=== PATIENT | female | born 1940 | race Caucasian/White ===

== ENCOUNTER 2024-01-25 14:34 | Outpatient (REF) | payer MEDICARE, SELFPAY ==
--- NOTE | ~2024-01-25 | US_ITS ---
EXAMINATION: US EXTRACRANIAL CAROTID DUPLEX, BILATERAL CLINICAL INFORMATION: stroke COMPARISON: None available. TECHNIQUE: Real-time ultrasound and Doppler techniques (integrating B-mode 2-D vascular images, Doppler spectral analysis and color-flow Doppler imaging) were utilized to interrogate the extracranial carotid arteries, the vertebral arteries and proximal subclavian arteries bilaterally. The degree of stenosis is determined by criteria similar to NASCET. FINDINGS: Right Side: 1. There is mild atherosclerotic plaque seen in the bifurcation/proximal ICA region. 2. The common carotid artery PSV proximally is 92 cm/s and distally 65 cm/s. 3. The proximal internal carotid artery velocities are 53 cm/s systolic and 8 cm/s diastolic. 4. The proximal external carotid artery PSV is 79 cm/s. 5. The vertebral artery shows antegrade flow. 6. The subclavian artery waveforms are normal. Left Side: 1. There is mild atherosclerotic plaque seen in the bifurcation/proximal ICA region. 2. The common carotid artery PSV proximally is 58 cm/s and distally 53 cm/s. 3. The proximal internal carotid artery velocities are 47 cm/s systolic and 9 cm/s diastolic. 4. The proximal external carotid artery PSV is 108 cm/s. 5. The vertebral artery shows antegrade flow. 6. The subclavian artery waveforms are normal. US/US carotid duplex BI IMPRESSION: 1. RIGHT: Minimal, non-hemodynamically significant stenosis of the proximal right internal carotid artery corresponding to a 0-49% stenosis by velocity criteria. 2. LEFT: Minimal, non-hemodynamically significant stenosis of the proximal left internal carotid artery corresponding to a 0-49% stenosis by velocity criteria. Electronically signed by: Tyshawn Singh MD 02/03/2024 11:04 AM EDT
--- NOTE | ~2024-01-25 | CT_ITS ---
EXAMINATION: CT HEAD WITHOUT CONTRAST CLINICAL INFORMATION: Stroke. COMPARISON: None available. TECHNIQUE: Contiguous axial imaging was performed from the skull base to vertex without intravenous administration of contrast. This CT examination was performed using dose optimization techniques as appropriate, variously including the following: *Automated exposure control. *Adjustment of mA and/or kV according to patient size (this includes techniques or standardized protocols for targeted exams where dose is matched to indication/reason for exam; i.e. extremities or head). *Use of iterative reconstruction technique. DLP: 707 mGy-cm FINDINGS: Chronic appearing lacunar infarcts of the bilateral castro radiata, right caudate head, bilateral lentiform nuclei, and bilateral thalami. No additional loss of maldonado-white matter differentiation. No evidence of acute intracranial hemorrhage. Confluent hypoattenuation in the periventricular and deep white matter. Proportional prominence of the ventricles and sulcal spaces without evidence of obstructive hydrocephalus. No abnormal mass effect or midline shift. No extra-axial fluid collections. No acute soft tissue or osseous abnormalities. Mild mucosal thickening of the paranasal sinuses. Mild rightward nasal septal deviation. The mastoid air cells and middle ear cavities are clear. Moderate to advanced degenerative arthropathy of the temporomandibular joints. CT/CT head/brain wo IV con IMPRESSION: 1. No evidence of acute intracranial hemorrhage or edematous territorial infarction. 2. Moderate to extensive underlying microangiopathy and generalized cerebral volume loss. Chronic appearing lacunar infarcts of the deep nuclei. Electronically signed by: Enrique De La Rosa DO 03/21/2024 04:20 AM [facility]
== END 2024-01-25 14:35 | disposition home or self-care (01) ==
LOC: HO.US 14:34
PROVIDERS: Visit Provider Psychiatry & Neurology Neurology
DX: I63.9 Cerebral infarction, unspecified (principal); I65.23 Occlusion and stenosis of bilateral carotid arteries
CPT/HCPCS: 70450; 93880

== ENCOUNTER 2025-02-26 13:12 | Outpatient (AMB) | payer MEDICARE, OTHER, SELFPAY ==
--- NOTE | 2025-02-26 13:14 | A.OFFVIS_ITS ---
Intake Visit Reasons: 6m stroke Allergies No Known Allergies Allergy (Verified 02/26/25 13:21) Medication List - Last Reconciled 02/26/25 by Hazel De Luna CNP alprazolam 0.5 mg (1/2 x 1 mg) PO QID 30 days amlodipine 10 mg PO DAILY aspirin-dipyridamole 25-200 mg 1 cap PO BID atenolol 50 mg PO DAILY atorvastatin 40 mg PO DAILY cholecalciferol (vitamin D3) 50 mcg PO DAILY hydrocodone-acetaminophen 10-325 mg 0.5 tabs PO BID PRN 30 days lisinopril 5 mg PO DAILY omeprazole 20 mg PO DAILY tamsulosin 0.4 mg PO DAILY HPI Comments Details: 84-year-old woman with history of epilepsy as a child, but outgrew it at age 12 and has been off phenobarbital since then, 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 Since then, she has been taking Aggrenox twice a day and has had daily headaches. She does not have any problems with her upper extremities. No cognitive problems or speech impediment. Her headaches were being treated by Dr. Muñoz with hydrocodone 10/325 2 tablets 2-4x/day and alprazolam 1mg 3x/day. Hydrocodone dose was reduced to 10/325 1/2 tablet twice a day (15 tabs/month) and alprazolam dose was reduced to 1mg 1/2 tablet 4x/day (60 tabs/month). She was doing okay. Ongoing left lower extremity weakness, using left knee brace for additional support and asking if script for new brace could be given. Walking with cane, sometimes using walker. No recent falls. Some occasional back pain. No new stroke-like symptoms. Headaches are on and off. She noticed headaches happened if she read a lot. She was wearing glasses when reading. She was under some more stress this past month as her son-in-law passed in 07/2024 and her daughter was having a difficult time. Medications were helping. She was doing okay. Ongoing left lower extremity weakness, using left knee brace for additional support. Walking with cane most of the time, but will use walker when outside of the house, no falls. Some occasional back pain. No new stroke- like symptoms. Headaches were not bad. In the past, she noticed headaches happened more if she read a lot. She was under some stress. Her daughter was diagnosed with breast cancer a few days after her passed. She reported non-productive cough x4 days and was taking Mucinex. No CP/SOB. No fevers, chills, nausea, vomiting, or dizziness. Appetite was okay. [facility] Medical History (Updated 02/26/25 @ 13:33 by Hazel De Luna CNP) Juvenile epilepsy Hyperlipidemia Hypertension Tension headache Stroke Review of Systems Const Denies chills, Denies daytime sleepiness, Denies difficulty sleeping, Denies fatigue, Denies fever(s), Denies frequent falls, Reports headache(s), Denies increased appetite, Denies poor appetite, Denies snoring, Denies weakness, Denies weight gain and Denies weight loss Eyes Denies loss of vision ENT Denies vertigo, Denies dizziness, Reports headache(s) and Denies neck pain Card Denies chest pain at rest, Denies chest pain with activity, Denies syncope, Denies leg edema, Denies palpitations, Denies dyspnea and Denies dyspnea on exertion Resp Denies cough, Denies dyspnea, Denies dyspnea on exertion and Denies snoring GI Denies abdominal pain, Denies constipation, Denies heartburn, Denies diarrhea and Denies nausea Denies urinary frequency, Denies urinary incontinence and Denies urinary urgency Musc Reports abnormal gait (balance difficulty), Denies back pain, Denies myalgias, Denies arthralgias, Denies neck pain, Denies numbness and Denies tingling Neuro Reports abnormal gait (balance difficulty), Denies vertigo, Denies dizziness, Denies syncope, Denies frequent falls, Reports headache(s), Denies lack of coordination, Denies loss of vision, Denies memory loss, Denies numbness, Denies Other visual disturbances, Denies restless legs, Denies seizure-like activity, Denies tingling, Denies paresthesias, Denies tremor(s) and Denies weakness Psych Denies anxiety, Denies depression, Denies auditory hallucinations, Denies memory loss and Denies visual hallucinations Endo Denies fatigue and Denies palpitations Physical Exam Const Other: General Appearance:? normal, in no acute distress. Heart:? S1, S2 normal, no murmurs. Lungs:? clear anteriorly and posteriorly, dim at bases. Dry cough. Musculoskeletal:? normal. Extremities:? no edema. Psych:? alert, oriented, cognitive function intact, cooperative with exam. Neuro Other: Abnormal Neurological Findings:?LLE 3/5 proximally and 4/5 quads. Left sided mild hyperreflexia. Left knee brace. Walks with cane. Mental Status: alert and oriented X 3. Normal attention, orientation, memory, and affect. Cranial Nerves: Pupils are equal, round, and reactive to light. External ocular muscles are intact. Visual gunn are full, no ptosis. Face is symmetrical, no facial weakness or droop. Facial sensations are normal. Tongue protrudes in midline. Palate elevates symmetrically. Shoulder shrugging is normal Motor Examination: As above. Sensory Exam: Normal light touch, temperature, pinprick, vibration, and joint- position sensations. Rhomberg sign is absent. Coordination: No ataxia. No titubation. Gait Exam: With cane. Cerebellar Signs: [id number] is okay. Extrapyramidal System: No tremor, rigidity with normal facial expressions. No bradykinesia. No bradyphrenia. Normal arm swing and posture. No propulsion or retropulsion. Speech: Normal. Results Reviewed Results Reviewed: CT head 06/2019: Moderate white matter disease Assessment & Plan Assessment & Plan (1) History of stroke with residual deficit: Code(s): I69.30 - Unspecified sequelae of cerebral infarction Category: Medical Plan: Continue current medications. (2) Tension headache: Comment: possible headache is related to Aggrenox use, chronic daily narcotic and benzodiazepine use that has been prescribed to her for many years Code(s): G44.209 - Tension-type headache, unspecified, not intractable Category: Medical Plan: Possible headache is related to Aggrenox use, chronic daily narcotic and benzodiazepine use that has been prescribed to her for many years Continue hydrocodone-acetaminophen 10-325mg 1/2 tablet twice a day #15 for 30 days. Continue alprazolam 1mg 1/2 tablet four times a day #60 for 30 days. (3) Cough: Code(s): R05.9 - Cough, unspecified Category: Medical Qualifiers: Cough type: acute Qualified Code(s): R05.1 - Acute cough Plan: Chest XR ordered. Advised to stay hydrated, follow up with PCP if symptoms worsened, ER precautions reviewed. Plan . Coding Level of Care Code Est Pt Level 4 (84105) Diagnoses History of stroke with residual deficit I69.30 Tension headache G44.209 Acute cough R05.1 Cough type: acute
--- OUTSIDE RECORDS SUMMARY | 2025-02-27 05:37 | XMS_ITS | Encounter Summary ---
Author Organization [facility] Address [address] [place] [address] Care Team Providers Care Transport Aide Name Role Phone Karan Deluca MD Primary Care Provider [phone] Encounter Details Date Type Department Care Team (Late st Contact Info) Description 02/21/2025 Telephone Internal Medicine - [place] [address] [facility] [address] [place] [address] Karan Deluca MD [address] [place] [phone] Social History Tobacco Use Types Packs/Day Years Used Date Smoking Tobacco: Former Cigarettes 0 Q uit: 04/11/2000 Smokeless Tobacco: Never Alcohol Use Standard Drinks/Week Comments No 0 (1 standard drink = 0.6 oz pur e alcohol) Comments Unknown Sex and Gender Information Value Date Recorded Sex Assigned at Not on file Legal Sex Female 6:06 AM EST Gender Identity Not on file Sexual Orientation Not on file documented as of this encounter Progress Notes * Nesha Lea MA - 02/22/2025 9:12 AM EST Patient called looking for information on Shakir for evaluation - Gave her information and let patient know once she is evaluated agency will contact office with orders to sign for her services * Fartun Kumar - 02/21/2025 3:03 PM EST Patient states left message for nesha re: [facility] care Please contact her documented in this encounter Plan of Treatment Not on file documented as of this encounter Visit Diagnoses Not on filedocumented in this encounter Additional Health Concerns Assessment Noted Time PHQ-9 Depression Total Score: 0 02/12/20 25 11:43 AM EST A fall risk assessment has been complete d for the patient 02/11/2025 12:07 PM EST documented as of this encounter Care Teams Transport Aide Relationship Specialty Start Date End Date Karan Deluca MD [address] [place] [phone] PCP - General 01/27/24 documented as of this encounter
--- OUTSIDE RECORDS SUMMARY | 2025-02-27 05:38 | XMS_ITS | Encounter Summary ---
Author Organization [facility] Address [id number] [place] [phone] Care Team Providers Care Putty Patcher Name Role Phone Karan Deluca MD Primary Care Provider [phone] Reason for Visit * Reason Onset Date Comments Med Refill 03/01/2024 Encounter Details Date Type Department Care Team ([facility] st Contact Info) Description 03/01/2024 Telephone Internal Medicine - [place] [address] [facility] [address] [place] [address] Karan Deluca MD [address] [place] [phone] Social History Tobacco Use Types Packs/Day Years [...] on file documented as of this encounter Plan of Treatment Not on file documented as of this encounter Visit Diagnoses Not on filedocumented in this encounter Care Teams Putty Patcher Relationship Specialty Start Date End Date Karan Deluca MD [address] [facility] [address] [place] [address] PCP - General 01/27/24 documented as of this encounter
--- OUTSIDE RECORDS SUMMARY | 2025-02-27 05:38 | XMS_ITS | Clinical Summary ---
Author Organization 175 [facility] Address [address] [place] [address] Phone Care Team Providers Care Bird Tender Name Role Phone Karan Deluca MD Primary Care Provider [phone] Allergies Active Allergy Reactions Criticality Noted Date Comments Sulfamethoxazole-Trimethoprim 2016 Bactrim Medications baclofen (LIORESAL) 10 mg tablet TAKE 1/2 TABLET BY MOUTH EVERY MORNING AND BEFORE BEDTIME 12/22/19 24 Active nystatin-triam cinolone (MYCOLOG II) cream Apply 1 g topically 2 Times Daily. 07/03/19 23 Active ondansetron (ZOFRAN) 4 mg tablet Take 1-2 Tablets by mouth every 8 hours as needed for Nausea. 06/15/19 23 Active tamsulosin (FLOMAX) 0.4 mg 24 hr capsule Take 1 capsule (0.4 mg total) by mouth at bedtime. Active lisinopriL (PRINIVIL,ZEST RIL) 5 mg tablet Take 1 tablet (5 mg total) by mouth 1 (one) time each day. 90 tablet 2 05/02/19 25 Active amLODIPine (NORVASC) 10 mg tablet TAKE 1 TABLET BY MOUTH DAILY 90 tablet 1 11/01/19 25 Active omeprazole (PriLOSEC) [address] capsule Take 1 capsule (20 mg total) by mouth 1 (one) time each day. 90 capsule 1 01/02/20 25 Active aspirin-dipyri damole (AGGRENOX) 25-200 mg per 12 hr capsule TAKE 1 CAPSULE BY MOUTH TWICE DAILY 180 capsule 01/29/20 25 Active atenoloL (TENORMIN) 50 mg tablet TAKE 1 TABLET(50 MG) BY MOUTH 1 TIME EACH DAY 90 tablet 1 01/30/20 25 Active cholecalcifero l (Vitamin D3) 50 mcg (2,000 unit) tablet Take 1 tablet (2,000 Units total) by mouth 1 (one) time each day. 90 tablet 3 02/12/20 25 026 Active atorvastatin (LIPITOR) 40 mg tablet Take 1 tablet (40 mg total) by mouth 1 (one) time each day. 90 tablet 2 02/20/20 25 Active atorvastatin (LIPITOR) 40 mg tablet Take 1 tablet (40 mg total) by mouth 1 (one) time each day. 90 tablet 2 05/31/19 25 025 Discontinued(Re order) atenoloL (TENORMIN) 50 mg tablet Take 1 tablet (50 mg total) by mouth 1 (one) time each day. 90 tablet 1 11/02/19 25 025 Discontinued Active Problems Problem Noted Date Diagnosed Date History of cardioembolic cerebrovascular acciden t (CVA) 03/21/2024 Anxiety 12/03/2015 GERD (gastroesophageal reflux disease) 6 Overview (02/16/2024): Had [address] Mancilla. No Reddy's historic. Previously every 2 years at [facility] [place]. Hemiparesis affecting left s jefferson as late effect of stroke (CMS/HCC V24, CMS/HCC V28) 06/24/2015 Overview (02/16/2024): CVA 04/06/2009 with left lower extremity weakness, saw Dr Muñoz Hypercholesterolemia 06/24/2015 Hypertension 06/24/2015 Lumbar degenerative disc disease 06/24/2015 Urinary outflow obstruction 06/24/2015 Encounters Date Type Department Care Team Description 02/21/2025 Telephone Internal Medicine - [place] [address] [facility] [address] [place] [phone] Karan Deluca MD 02/14/2025 Telephone Internal Medicine - [place] [address] [facility] [address] [place] [phone] Karan Deluca MD 02/11/2025 12:30 PM EST Lab Draw Station - [facility] [address] [place] [phone] Adult general medical examination; Medicare annual wellness visit, subsequent; Other fatigue; Other abnormal glucose; Hypercholesterolemia; Vitamin D deficiency 02/11/2025 11:30 AM EST Office Visit Internal Medicine [address] [phone] Karan Deluca MD Medicare annual wellness visit, subsequent (Primary Dx); Primary hypertension; Hypercholesterolemia; Gastroesophageal reflux disease, unspecified whether esophagitis present; Anxiety; Degeneration of intervertebral disc of lumbar region with discogenic back pain; Routine general medical examination at a health care facility; History of cardioembolic cerebrovascular accident (CVA); Hemiparesis affecting left side as late effect of stroke (CMS/HCC V24, CMS/HCC V28); Vitamin D deficiency; Other fatigue; Other abnormal glucose; Skin growth 02/11/2025 Results Follow-Up Internal [address] [phone] Karan Deluca MD 01/22/2025 Telephone Internal Medicine [address] [phone] Karan Deluca MD from Last 3 Months Immunizations Immunization Administration Dates Next Due Influenza trivalent, 0.5mL ( Fluad) 65yo and older 12/18/2023,01/24/2018,03/16/2017 Influenza trivalent, 0.5mL, preservative free (Fluarix; FluLaval; Fluzone) ages 6mo and older (Afluria) 3 years and older 12/14/2019,03/02/2013,04/26/2012 [employer] SARS-CoV-2 COVID-19, mRNA, LNP-S, preservative free 12/18/2023,06/12/2020,05/22/2020 Pneumococcal conjugate 13 va lent (Prevnar 13, PCV13) 2mo and older 08/31/2017 Pneumococcal polysaccharide 23 valent (Pneumovax 23) 2yo and older 11/16/2018 Tdap Tetanus diptheria acell ular pertussis (Boostrix; Adacel) 7yo and older 08/31/2017 Surgical History Surgery Date Site/Laterality Comments UPPER GASTROINTESTINAL ENDOSCOPY PROCEDURE: RI UPPER GI ENDOSCOPY PERFORMED COLONOSCOPY PROCEDURE: HISTORICAL COLONOSCOPY; COMMENT: 1984 Medical History Medical History Date Comments GERD (gastroesophageal reflux disease) DX:GERD (gastroesophageal reflux disease) Hypertension DX:Hypertension Stroke ([facility] V24, [facility] V28) DX:Stroke ([facility]); COMMENT: 2009 Bladder neck obstruction DX:Blad efrain neck obstruction; COMMENT: sees Dr. Bonds; does not need to self cath Degenerative disc disease, lumbar DX:Degenerative disc disease, lumbar Hemiparesis affecting left s jefferson as late effect of stroke ([facility] V24, [facility] V28) 06/24/2015 DX:Hemiparesis affecting lef t side as late effect of stroke ([facility]); COMMENT: CVA 04/06/2009 with left lower extremity weakness, saw Dr Muñoz Family History Medical History Relation Name Comments Coronary artery disease Brother 1 Alcohol abuse Brother 2 No Known Problems Daughter Lung cancer Father likely r/t work Other: heart condition Mother ?rheu matic fever Arthritis Sister No Known Problems Son Relation Name Status Comments Brother 1 Brother 2 Daughter Alive Father Mother Sister Alive Son Alive Social History Tobacco Use Types Packs/Day Years [...] on file Sexual Orientation Not on file Obstetrics History Last Filed Vital Signs Vital Sign Reading Time Taken Comments Blood Pressure 118/88 02/11/2025 11:28 AM EST Pulse 59 02/11/2025 11:28 AM EST Temperature 36.2 C (97.1 F) 02/11/2025 11:28 AM EST Respiratory Rate - - Oxygen Saturation 96% 02/11/2025 11:28 AM EST Inhaled Oxygen Concentration - - Weight 54.9 kg (121 lb) 02/11/2025 11:28 AM EST Height 160 cm (5' 3 ) 01/11/2024 2:33 PM EDT Body Mass Index 21.43 01/11/2024 2:33 PM EDT Plan of Treatment Health Maintenance Due Date Last Done Comments Zoster Vaccines (1 of 2) 1990 RSV Immunization Adult Patients (1 - 1-dose 75+ series) 11/30/2015 Osteoporosis Screening (Bone Density Screening) 03/20/2022 Social Influencers of Health Screening 03/20/2022 COVID-19 Vaccine ( season) 2024 12/18/2023, 06/12/2020, 05/22/2020 Influenza Vaccine (#1) 2024 , 12/14/2019, 01/24/2018, Additional history exists Falls Risk Assessment 02/11/2026 02/11/2025, 025 Hypertension/CHF/CAD Annual BMP Blood Test 02/11/2026 02/11/2025, 08/10/2023, 08/10/2023 Medicare Annual Wellness Visit 02/11/2026 02/11/2025 DTaP,Tdap,and Td Vaccines (2 - Td or Tdap) 09/01/2027 08/31/2017 Cholesterol Screening (Lipid Panel) 02/11/2030 02/11/2025, 08/11/2022 Pneumococcal Vaccine: 50+ Years Completed 11/16/2018, 08/31/2017 Depression Screening Completed 02/11/2025, 01/13/20 24 HIB Vaccines Aged Out No longer eligi ble based on patient's age to complete this topic HPV Vaccines Aged Out No longer eligi ble based on patient's age to complete this topic Hepatitis A Vaccines Aged Out No long er eligible based on patient's age to complete this topic Hepatitis B Vaccines Aged Out No long er eligible based on patient's age to complete this topic IPV Vaccines Aged Out No longer eligi ble based on patient's age to complete this topic MMR Vaccines Aged Out No longer eligi ble based on patient's age to complete this topic Meningococcal ACWY Vaccine Aged Out N o longer eligible based on patient's age to complete this topic Meningococcal B Vaccine Aged Out No l onger eligible based on patient's age to complete this topic RSV Immunization Patients Under 20 months Aged Out No longer eligible based on patient's age to complete this topic Varicella Vaccines Aged Out No longer eligible based on patient's age to complete this topic Procedures Procedure Name Priority Date/Time Associated Diagnosis Comments CBC WITH AUTO DIFFERENTIAL Routine 02/11/2025 12:29 PM EST Medicare annual wellness visit, subsequent Other fatigue THYROID STIMULATING HORMONE WITH REFLEX TO FREE T4 AND FREE T3 Routine 02/11/2025 12:29 PM EST Medicare annual wellness visit, subsequent Other fatigue VITAMIN D 25 HYDROXY Routine 02/11/2025 12:29 PM EST Medicare annual wellness visit, subsequent Vitamin D deficiency LIPID PANEL WITH REFLEX TO DIRECT LDL Routine 02/11/2025 12:29 PM EST Medicare annual wellness visit, subsequent Hypercholesterolemi a COMPREHENSIVE METABOLIC PANEL Routine 02/11/2025 12:29 PM EST Medicare annual wellness visit, subsequent Other fatigue VITAMIN B12 Routine 02/11/2025 12:29 PM EST Medicare annual wellness visit, subsequent Other fatigue HEMOGLOBIN A1C Routine 02/11/2025 12:29 PM EST Medicare annual wellness visit, subsequent Other abnormal glucose CBC AND DIFFERENTIAL Routine 02/11/2025 12:29 PM EST Medicare annual wellness visit, subsequent Other fatigue MAGNESIUM Routine 02/11/2025 12:29 PM EST Adult general medical examination DEPRESSION SCREENING Routine 01/13/2024 from Last 3 Months or Most Recently Relevant to Health Maintenance Results * Thyroid stimulating hormone with reflex to free t4 and free t3 (02/11/2025 12:29 PM EST) TSH 2.41 0.40 - 4.00 mcIU/mL LAB CHEMISTRY METHOD 02/11/2025 7:35 PM EST [facility] ([facility]) [facility] Blood Venous blood specimen / Unknown Venipuncture / Unknown 02/11/2025 12:29 PM EST 02/11/2025 12:29 PM EST us Karan Deluca MD LAB BLOOD ORDERABLES Final Resul t [facility] [address] [place] [address], [place] [phone] * Lipid panel with reflex to direct LDL (02/11/2025 12:29 PM EST) Pathologist [facility] Cholesterol 125 0 - 200 mg/dL LAB CHEMISTRY METHOD 02/11/2025 6:55 PM EST [facility] Triglycerides 123 0 - 150 mg/dL LAB CHEMISTRY METHOD 02/11/2025 6:55 PM [facility] HDL 51 >=40 mg/dL LAB CHEMISTRY METHOD 02/11/2025 6:55 PM [facility] LDL Calculated 49 0 - 100 mg/dL LAB CHEMISTRY METHOD 02/11/2025 6:55 PM [facility] Comment:Estimated LDL Calcul ated using equation: Total cholesterol - HDL cholesterol - (Triglycerides/5) VLDL Cholesterol Bryan 24.6 mg/dL LAB CHEMISTRY METHOD 02/11/2025 6:55 PM [facility] Non HDL Chol. (LDL+VLDL) 74 <145 mg/dL LAB CHEMISTRY METHOD 02/11/2025 6:55 PM [facility] Chol/HDL Ratio 2.5 0.0 - 4.4 LAB CHEMISTRY METHOD 02/11/2025 6:55 PM [facility] Blood Venous blood specimen / Unknown Venipuncture / Unknown 02/11/2025 12:29 PM EST 02/11/2025 12:29 PM EST us Karan Deluca MD LAB BLOOD ORDERABLES Final Resul t [facility] [address] [place] [address], [place] [phone] * CBC auto differential (02/11/2025 12:29 PM EST) Pathologist [facility] WBC 7.3 4.8 - 10.8 K/mcL LAB HEMETOLOGY METHOD 02/11/2025 2:21 PM [facility] RBC 4.70 3.80 - 4.80 M/mcL LAB HEMETOLOGY METHOD 02/11/2025 2:21 PM [facility] Hemoglobin 14.6 11.5 - 16.0 g/dL LAB HEMETOLOGY METHOD 02/11/2025 2:21 PM [facility] Hematocrit 45.2 35.0 - 47.0 % LAB HEMETOLOGY METHOD 02/11/2025 2:21 PM [facility] MCV 96.0 79.0 - 98.0 FL LAB HEMETOLOGY METHOD 02/11/2025 2:21 PM [facility] MCH 31.0 27.0 - 32.0 pcg LAB HEMETOLOGY METHOD 02/11/2025 2:21 PM [facility] MCHC 32.3 32.0 - 37.0 g/dL LAB HEMETOLOGY METHOD 02/11/2025 2:21 PM [facility] RDW 12.7 11.0 - 15.0 % LAB HEMETOLOGY METHOD 02/11/2025 2:21 PM [facility] Platelets 231 130 - 400 K/mcL LAB HEMETOLOGY METHOD 02/11/2025 2:21 PM [facility] MPV 10.5 7.0 - 11.0 FL LAB HEMETOLOGY METHOD 02/11/2025 2:21 PM [facility] NRBC 0.0 <1.0 % LAB HEMETOLOGY METHOD 02/11/2025 2:21 PM [facility] NRBC Absolute 0.00 <0.10 K/mcL LAB HEMETOLOGY METHOD 02/11/2025 2:21 PM [facility] Neutrophils Relative 57.0 % LAB HEMETOLOGY METHOD 02/11/2025 2:21 PM [facility] Lymphocytes Relative 32.7 % LAB HEMETOLOGY METHOD 02/11/2025 2:21 PM [facility] Monocytes Relative 6.9 % LAB HEMETOLOGY METHOD 02/11/2025 2:21 PM [facility] Eosinophils Relative 1.9 % LAB HEMETOLOGY METHOD 02/11/2025 2:21 PM [facility] Basophils Relative 1.1 % LAB HEMETOLOGY METHOD 02/11/2025 2:21 PM [facility] Immature Granulocytes Relative 0.4 % LAB HEMETOLOGY METHOD 02/11/2025 2:21 PM [facility] Neutrophils Absolute 4.15 1.50 - 7.00 K/mcL LAB HEMETOLOGY METHOD 02/11/2025 2:21 PM [facility] Lymphocytes Absolute 2.38 1.00 - 5.00 K/mcL LAB HEMETOLOGY METHOD 02/11/2025 2:21 PM [facility] Monocytes Absolute 0.50 0.20 - 1.00 K/mcL LAB HEMETOLOGY METHOD 02/11/2025 2:21 PM [facility] Eosinophils Absolute 0.14 0.00 - 0.50 K/mcL LAB HEMETOLOGY METHOD 02/11/2025 2:21 PM [facility] Basophils Absolute 0.08 0.00 - 0.20 K/mcL LAB HEMETOLOGY METHOD 02/11/2025 2:21 PM [facility] Immature Granulocytes Absolute 0.03 0.00 - 0.03 K/mcL LAB HEMETOLOGY METHOD 02/11/2025 2:21 PM [facility] Blood Venous blood specimen / Unknown Venipuncture / Unknown 02/11/2025 12:29 PM EST 02/11/2025 12:29 PM EST us Karan Deluca MD LAB BLOOD ORDERABLES Final Resul t [facility] [address] [place] [address], [place] [phone] * (ABNORMAL) Vitamin D 25 hydroxy (02/11/2025 12:29 PM EST) [facility] Vit D, 25-Hydroxy 12.0(L) 30.0 - 80.0 ng/mL LAB CHEMISTRY METHOD 02/11/2025 7:35 PM EST [facility] Blood Venous blood specimen / Unknown Venipuncture / Unknown 02/11/2025 12:29 PM EST 02/11/2025 12:29 PM EST Karan Deluca MD LAB BLOOD ORDERABLES Final Resul t Performing Organization Address [facility]/ZIP Co de Phone Number [facility] [address] [place] [address], * Magnesium (02/11/2025 12:29 PM EST) [facility] Magnesium 2.3 1.9 - 2.6 mg/dL LAB CHEMISTRY METHOD 02/11/2025 6:24 PM EST [facility] Blood Venous blood specimen / Unknown Venipuncture / Unknown 02/11/2025 12:29 PM EST 02/11/2025 12:29 PM EST Karan Deluca MD LAB BLOOD ORDERABLES Final Resul t Performing Organization Address City/[facility]/ZIP Co de Phone Number [facility] [address] [place] [address], [place] [phone] * Hemoglobin A1c (02/11/2025 12:29 PM EST) [facility] Hemoglobin A1C 5.2 <6.5 % LAB CHEMISTRY METHOD 02/11/2025 8:55 PM EST [facility] Mean Bld Glu Estim. 103 mg/dL LAB CHEMISTRY METHOD 02/11/2025 8:55 PM EST [facility] Blood Venous blood specimen / Unknown Venipuncture / Unknown 02/11/2025 12:29 PM EST 02/11/2025 12:29 PM EST Karan Deluca MD LAB BLOOD ORDERABLES Final Resul t Performing Organization Address [facility]/ZIP Co de Phone Number [facility] [address] [place] [address], [place] [phone] * Vitamin B12 (02/11/2025 12:29 PM EST) Pathologist [facility] Vitamin B-12 345 250 - 900 pcg/mL LAB CHEMISTRY METHOD 02/11/2025 6:55 PM [facility] Blood Venous blood specimen / Unknown Venipuncture / Unknown 02/11/2025 12:29 PM EST 02/11/2025 12:29 PM EST Karan Deluca MD LAB BLOOD ORDERABLES Final Resul t Performing Organization Address City/[facility]/ZIP Co de Phone Number [facility] [address] [place] [address], [place] [phone] * Comprehensive metabolic panel (02/11/2025 12:29 PM EST) [facility] Sodium 140 133 - 145 mmol/L LAB CHEMISTRY METHOD 02/11/2025 6:55 PM [facility] Potassium 3.8 3.5 - 5.5 mmol/L LAB CHEMISTRY METHOD 02/11/2025 6:55 PM [facility] Chloride 106 96 - 110 mmol/L LAB CHEMISTRY METHOD 02/11/2025 6:55 PM [facility] CO2 29 21 - 32 mmol/L LAB CHEMISTRY METHOD 02/11/2025 6:55 PM [facility] Anion Gap 5 3 - 11 LAB CHEMISTRY METHOD 02/11/2025 6:55 PM [facility] Glucose 85 70 - 100 mg/dL LAB CHEMISTRY METHOD 02/11/2025 6:55 PM [facility] BUN 15 5 - 25 mg/dL LAB CHEMISTRY METHOD 02/11/2025 6:55 PM [facility] Creatinine 0.88 0.50 - 1.10 mg/dL LAB CHEMISTRY METHOD 02/11/2025 6:55 PM [facility] eGFR 65 >=60 mL/min/1. 73m2 LAB CHEMISTRY METHOD 02/11/2025 6:55 PM [facility] Comment:Calculation based on the Chronic Kidney Disease Epidemiology Collaboration (CKD-EPI) equation refit without adjustment for race. BUN/Creatinine Ratio 17.0 LAB CHEMISTRY METHOD 02/11/2025 6:55 PM [facility] Calcium 8.8 8.5 - 10.5 mg/dL LAB CHEMISTRY METHOD 02/11/2025 6:55 PM [facility] AST (SGOT) 13 10 - 42 unit/L LAB CHEMISTRY METHOD 02/11/2025 6:55 PM [facility] ALT (SGPT) 21 10 - 60 unit/L LAB CHEMISTRY METHOD 02/11/2025 6:55 PM [facility] Alkaline Phosphatase 68 42 - 121 unit/L LAB CHEMISTRY METHOD 02/11/2025 6:55 PM [facility] Total Protein 6.3 6.0 - 8.0 g/dL LAB CHEMISTRY METHOD 02/11/2025 6:55 PM [facility] Albumin 3.6 3.2 - 5.0 g/dL LAB CHEMISTRY METHOD 02/11/2025 6:55 PM [facility] Total Bilirubin 0.8 0.0 - 1.4 mg/dL LAB CHEMISTRY METHOD 02/11/2025 6:55 PM [facility] Blood Venous blood specimen / Unknown Venipuncture / Unknown 02/11/2025 12:29 PM EST 02/11/2025 12:29 PM EST Karan Deluca MD LAB BLOOD ORDERABLES Final Resul t [facility] ([facility]) [facility] [address] [place] [address], * Depression Screening (01/13/2024) Depression Screening abstracted Historical Provider HEALTH MAINTENANCE Final Result from Last 3 Months or Most Recently Relevant to Health Maintenance Insurance MEDICARE [facility] Advance Directives Documents on File Type Date Recorded Patient Insulation Worker Expl anation Health Care Decision (hx) 08/02/2013 AD BEATA DIRECTIVE * Full Code - Confirmed (Latest Code Status on File) Date Activated Date Inactivated Comments 02/11/2025 12:05 PM This code sta tus was ascertained in the following way: Code status discussion: discussion with patient To update the patient's code status, place a code status order. Do not modify or discontinue any currently active code status orders. Care Teams Bird Tender Relationship Specialty Start Date End Date Karan Deluca MD [address] [place] [phone] PCP - General 01/27/24
--- OUTSIDE RECORDS SUMMARY | 2025-02-27 05:38 | XMS_ITS | Encounter Summary ---
Author Organization [facility] Address [address] [place] [address] Care Team Providers Care Accounting Machine Mechanic Name Role Phone Karan Deluca MD Primary Care Provider [phone] Encounter Details Date Type Department Care Team (Late st Contact Info) Description 02/11/2025 Results Follow-Up Internal Medicine - [place] [address] [facility] [address] [place] [phone] Karan Deluca MD [address] [place] [address] Social History Tobacco Use Types Packs/Day Years [...] on file documented as of this encounter Ordered Prescriptions Prescription Sig Dispense Quantity Refills Last Filled Start Date End Date cholecalciferol (Vitamin D3) 50 mcg (2,000 unit) tablet Take 1 tablet (2,000 Units total) by mouth 1 (one) time each day. 90 tablet 3 02/11/2025 02/11/2026 documented in this encounter Progress Notes * Fartun Kumar - 02/14/2025 12:02 PM EST Please contact patient attempted to explain ever source- what it covers The only electrical medical office technology instructor - Wheelchair No diabetic No Sleep Apnea documented in this encounter Plan of Treatment Not on file documented as of this encounter Visit Diagnoses Not on filedocumented in this encounter Additional Health Concerns Assessment Noted Time PHQ-9 Depression Total Score: 0 02/12/20 25 11:43 AM EST A fall risk assessment has been complete d for the patient 02/11/2025 12:07 PM EST documented as of this encounter Care Teams Accounting Machine Mechanic Relationship Specialty Start Date End Date Karan Deluca MD [address] [place] [phone] PCP - General 01/27/24 documented as of this encounter
== END 2025-02-26 13:41 | disposition home or self-care (01) ==
LOC: HO.HSM 13:12
PROVIDERS: PCP Internal Medicine; Referring Provider Internal Medicine; Visit Provider Registered Nurse
DX: I69.30 Unspecified sequelae of cerebral infarction (principal); G44.209 Tension-type headache, unspecified, not intractable; R05.1 Acute cough
CPT/HCPCS: 99214

== ENCOUNTER → 2025-02-26 13:12 | Outpatient (BNVA) | payer MEDICARE, OTHER, SELFPAY | PROVIDERS: PCP Internal Medicine; Referring Provider Internal Medicine; Visit Provider Registered Nurse | DX: G44.209 Tension-type headache, unspecified, not intractable (principal); I69.354 Hemiplegia and hemiparesis following cerebral infarction affecting left non-dominant side; I10 Essential (primary) hypertension; R05.1 Acute cough | CPT/HCPCS: 99212 ==